=== PATIENT | male | born 1935 | race Caucasian/White ===

== ENCOUNTER 2018-11-17 16:43 | Observation (INO) ==
[2018-11-17] MEDS ORDERED: Aspirin 81 MG TAB.CHEW PO ONE (17:12)
--- NOTE | 2018-11-17 17:15 | Emergency Department Note ---
Disposition Clinical Impression: ACS (acute coronary syndrome) Disposition: Admitted As Inpatient Time of Disposition: 17:14 General Adult HPI - General Chief complaint: ED Chest Pain Stated complaint: Chest Pains Time Seen by Provider: 11/17/18 16:58 Source: patient, family Limitations: no limitations Nursing Notes Reviewed: Yes Vital Signs Reviewed: Yes - History of Present Illness HPI Narrative: Attestation note: Patient was seen with the emergency medicine resident/nurse practitioner/physician press assistant/transitional resident/medical student: Dr. Vishal Kelsey. I was present for the significant portions of the performance and interpretation of procedures and EKGs. I have personally performed a face to face evaluation on this patient. I have reviewed and agree with history and physical examination patient management and disposition. Briefly the salient points of the case are as follows: 83-year-old male presents with chest pain from his primary care provider's office. Patient has a HEART score 6. EKG shows some T-wave inversions in II, III, and F. No acute ST elevations or depressions. Seems like there is some pauses. Patient will get troponin chest x-ray screening labs with admission. Patient will get aspirin. Currently chest pain-free. Providing 45 minutes critical care service this patient. Disposition pending Pain Scale: 0 - Related Data Allergies Allergy/AdvReac Type Severity Reaction Status Date / Time IV Contrast Allergy Anaphylaxis Uncoded 11/17/18 16:47 Past Medical History - Past Medical History Medical history: Reports: other - Social History Smoking Status: Former smoker Smokeless Tobacco Status: No Alcohol use: Reports: none Drug use: Reports: none Physical Exam - General Limitations: no limitations General appearance: alert, in no apparent distress Course Vital Signs Temperature 97.6 F 11/17/18 16:47 Pulse Rate 60 11/17/18 16:47 Respiratory Rate 18 11/17/18 16:47 Blood Pressure 125/60 11/17/18 16:47 O2 Sat by Pulse Oximetry 97 11/17/18 16:47 Temperature 97.6 F 11/17/18 16:47 Pulse Rate 60 11/17/18 16:47 Respiratory Rate 18 11/17/18 16:47 Blood Pressure 125/60 11/17/18 16:47 O2 Sat by Pulse Oximetry 97 11/17/18 16:47 Oxygen Delivery Oxygen Delivery Room Air
--- NOTE | 2018-11-17 17:31 | Emergency Department Note ---
Disposition Clinical Impression: ACS (acute coronary syndrome) Disposition: Admitted As Inpatient Condition: Fair Forms: ED Satisfaction Letter Time of Disposition: 19:06 Chest Pain HPI - General Chief Complaint: ED Chest Pain Stated Complaint: Chest Pains Time Seen by Provider: 11/17/18 16:58 Source: patient, family Mode of arrival: ambulatory Limitations: no limitations Vital Signs Reviewed: Yes Nursing Notes Reviewed: Yes - History of Present Illness HPI Narrative: 83-year-old male presents to the emergency department complaining of chest pain. Said this been going on for partially 6 months but has worsened over the last few days said now it occurs whenever he is walking any type of distance. Says it is a 6 out of 10 dull throbbing ache in the right side of his chest nonradiating he says after that he becomes shortness of breath. When he rest t he pain goes away. He does not have any history of cardiac stent placement or open heart surgery but has had heart catheterization and stress test which were negative approximate 10 years ago. Does have history of diabetes, hypertension, hypercholesterol. Patient otherwise has no other complaint this time there is no nausea vomiting headache blurry vision back pain fevers chills nausea vomiting. Severity scale (1-10): 0 - Related Data Allergies Allergy/AdvReac Type Severity Reaction Status Date / Time IV Contrast Allergy Anaphylaxis Uncoded 11/17/18 16:47 All systems ED: reviewed and negative except as stated. Review of Systems: As Per HPI Chest Pain PMH - Past Medical History Medical history: Reports: other - Social History Smoking Status: Former smoker Alcohol use: Reports: none Drug use: Reports: none Physical Exam - General Limitations: no limitations General appearance: alert, in no apparent distress - Head Head exam: atraumatic, normocephalic, normal inspection - Eye Eye exam: Present: normal appearance, PERRL, EOMI - ENT ENT exam: normal exam, normal oropharynx, mucous membranes moist - Neck Neck exam: Present: normal inspection, full ROM, trachea midline - Chest Chest inspection: Present: normal inspection, symmetric chest wall rise - Respiratory Respiratory exam: Present: normal lung sounds bilaterally - Cardiovascular Cardiovascular exam: Present: regular rate, normal rhythm, normal heart sounds - Abdominal Exam Abdominal exam: Present: soft, Non-Tender, normal bowel sounds. Absent: tenderness, distention, guarding, rebound, rigidity - Extremities Exam Extremities exam: Present: normal inspection, full ROM, pedal edema (1+ bilaterally no signs of erythema). Absent: tenderness - Back Exam Back exam: Present: normal inspection, full ROM. Absent: tenderness - Neurological Exam Neurological exam: Present: alert, oriented X3 - Skin Skin exam: Present: warm, dry, intact, normal color Course Course Narrative: We will get chest pain workup including CBC BMP troponin does not take Coumadin no recent get PT/INR. We will get EKG chest x-ray. Patient given aspirin. No chest pain at this time so we will hold nitroglycerin. Disposition most likely will be admission for further evaluation. Vital Signs Temperature 97.6 F 11/17/18 16:47 Pulse Rate 60 11/17/18 16:47 Respiratory Rate 18 11/17/18 16:47 Blood Pressure 125/60 11/17/18 16:47 O2 Sat by Pulse Oximetry 97 11/17/18 16:47 Temperature 97.6 F 11/17/18 16:47 Pulse Rate 65 11/17/18 17:49 Respiratory Rate 18 11/17/18 17:49 Blood Pressure 120/46 11/17/18 17:49 O2 Sat by Pulse Oximetry 98 11/17/18 17:49 Oxygen Delivery Oxygen Delivery Room Air Chest Pain - MDM Narrative Medical decision making narrative: 83-year-old male presented to the emergency department complaining of chest pain. Troponin came back negative EKG did have new ST inversions there are no elevations or signs of STEMI. Troponin was negative. Due to patient's story as well as his history I feel patient needs to be admitted for further evaluation. Patient did receive aspirin while here he was having chest pain while here so did not give him nitroglycerin. I spoke with Dr. Suazo who agreed to admit the patient to their service per patient admitted in stable condition. Chest X-Ray 11/17/18 16:49 IMPRESSION: No acute abnormality. D/ / Timo Ruelas MD / Timo Ruelas MD Interpreting Provider: Timo Ruelas MD - Medical Records Medical records reviewed: Yes I reviewed the patient's medical records. - Lab Data Lab results reviewed: Yes I reviewed the patient's lab results. Result diagrams: 11/17/18 17:26 11/17/18 17:26 Lab Results 11/17/18 11/17/18 Range/Units 17:26 17:26 WBC 4.1 L (4.3-11.1) K/mcL RBC 4.24 (4.19-5.50) M/mcL Hgb 13.3 (12.9-16.9) g/dL Hct 41.0 (37.5-50.1) % MCV 96.7 (83.0-100.0) fL MCH 31.4 (28.0-33.3) pg MCHC 32.4 (31.6-35.5) g/dL RDW 12.8 (11.5-14.5) % Plt Count 254 (140-400) K/mcL MPV 10.4 (9.4-12.4) fL Immature Gran % 0.2 (0-4) % Seg Neutrophils % 57.4 % Lymphocytes % 27.5 % Monocytes % 12.8 % Eosinophils % 1.4 % Basophils % 0.7 % Neutrophils # 2.4 (1.6-8.9) K/mcL Lymphocytes # 1.1 (0.6-4.6) K/mcL Monocytes # 0.5 (0.0-1.3) K/mcL Eosinophils # 0.1 (0.0-0.6) K/mcL Basophils # 0.0 (0.0-0.2) K/mcL Sodium 136 (136-145) mEq/L Potassium 4.5 (3.5-5.1) mEq/L Chloride 106 (98-107) mEq/L Carbon Dioxide 23 (23-29) mEq/L BUN 21 (8-23) mg/dL Creatinine 1.06 (0.70-1.30) mg/dL Est GFR ( Amer) > 60 (> 60) Est GFR (Non-Af Amer) > 60 (> 60) BUN/Creatinine Ratio 20 (6-26) Glucose 129 H (70-105) mg/dL Calculated Osmolality 287 (280-300) Calcium 9.5 (8.6-10.3) mg/dL Troponin I < 0.03 (< 0.04) ng/mL - Radiology Data Radiology results reviewed: Yes I reviewed the patient's radiology results. - EKG Data EKG attestation: Yes I reviewed and interpreted this EKG. EKG results narrative: EKG done at 1653 review myself and the attending shows sinus bradycardia with a first-degree block at a rate of 55, HI interval 212, QRS 98, QTC 398. There is no acute ST changes there are flipped T waves in inferior leads leads II, III aVF otherwise no other ischemic changes. No signs of hypertrophy, heart strain, heart block. No WPW/Brugada/HOCM. E EKG is changed from previous with the new T-wave inversions when compared with old one done 09/15/17 Heart Score - Score History: Moderately Suspicious EKG: Non Specific repolarisation Disturbance Age: Greater than 65 Risk Factors: Equal/Greater than 3 risk factor or history of atherosclerotic disease Troponin: Less than normal limit HEART Score Total: 6
[2018-11-17 17:44] LABS: Basophils % 0.7 %; Eosinophils # 0.1 K/mcL (0.0-0.6); Eosinophils % 1.4 %; Hemoglobin 13.3 g/dL (12.9-16.9); Immature Granulocytes % 0.2 % (0-4); Lymphocytes # 1.1 K/mcL (0.6-4.6); Lymphocytes % 27.5 %; Mean Corpuscular HGB Conc 32.4 g/dL (31.6-35.5); Mean Corpuscular Hemoglobin 31.4 pg (28.0-33.3); Mean Corpuscular Volume 96.7 fL (83.0-100.0); Mean Platelet Volume 10.4 fL (9.4-12.4); Monocytes # 0.5 K/mcL (0.0-1.3); Monocytes % 12.8 %; Neutrophils # 2.4 K/mcL (1.6-8.9); Platelet Count 254 K/mcL (140-400); Red Blood Count 4.24 M/mcL (4.19-5.50); Red Cell Distribution Width 12.8 % (11.5-14.5); Segmented Neutrophils % 57.4 %; White Blood Count 4.1 K/mcL (4.3-11.1)
[2018-11-17 18:05] LABS: BUN/Creatinine Ratio 20 (6-26); Blood Urea Nitrogen 21 mg/dL (8-23); Calcium 9.5 mg/dL (8.6-10.3); Carbon Dioxide 23 mEq/L (23-29); Chloride 106 mEq/L (98-107); Glucose 129 mg/dL (70-105); Osmolality,Calculated 287 (280-300); Potassium 4.5 mEq/L (3.5-5.1); Sodium 136 mEq/L (136-145); Troponin I < 0.03 ng/mL (< 0.04); eGFR For African Americans > 60 (> 60); eGFR For Non-African Americans > 60 (> 60)
[2018-11-18] MEDS ORDERED: Naloxone 0.4 MG/ML INJ IVP PRN (00:03)
[2018-11-18] MEDS ORDERED: Dextrose Gel 15 GM/37.5 ML TUBE PO PRN ×4 (00:04→07:35)
[2018-11-18] MEDS ORDERED: *HR* Dextrose 50 % in Water (Syg) 50 ML SYRINGE IVP PRN ×2 (00:04→07:35)
[2018-11-18] MEDS ORDERED: D5% in Water 1,000 ML IVC PRN ×2 (00:04→07:35)
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
[2018-11-18] MEDS: *HR* Heparin 5,000 UNIT/ML VIAL SQ SCH ×2 (05:02→18:30)
[2018-11-18] MEDS ORDERED: Insulin LISPRO 300 UNITS/3 ML VIAL SQ SCH (07:30)
[2018-11-18] MEDS ORDERED: Regadenoson 0.4 MG/5 ML SYRINGE IVP ONE (08:20)
[2018-11-18 13:49] LABS: Basophils % 0.7 %; Eosinophils # 0.1 K/mcL (0.0-0.6); Eosinophils % 1.6 %; Hematocrit 43.8 % (37.5-50.1); Hemoglobin 14.1 g/dL (12.9-16.9); Immature Granulocytes % 0.4 % (0-4); Lymphocytes # 1.4 K/mcL (0.6-4.6); Lymphocytes % 25.9 %; Mean Corpuscular HGB Conc 32.2 g/dL (31.6-35.5); Mean Corpuscular Hemoglobin 31.1 pg (28.0-33.3); Mean Corpuscular Volume 96.5 fL (83.0-100.0); Mean Platelet Volume 10.4 fL (9.4-12.4); Monocytes # 0.7 K/mcL (0.0-1.3); Monocytes % 12.1 %; Neutrophils # 3.3 K/mcL (1.6-8.9); Platelet Count 277 K/mcL (140-400); Red Blood Count 4.54 M/mcL (4.19-5.50); Red Cell Distribution Width 12.9 % (11.5-14.5); Segmented Neutrophils % 59.3 %; White Blood Count 5.6 K/mcL (4.3-11.1)
[2018-11-18 14:07] LABS: BUN/Creatinine Ratio 20 (6-26); Blood Urea Nitrogen 19 mg/dL (8-23); Calcium 9.5 mg/dL (8.6-10.3); Carbon Dioxide 23 mEq/L (23-29); Chloride 105 mEq/L (98-107); Glucose 194 mg/dL (70-105); Osmolality,Calculated 288 (280-300); Potassium 4.6 mEq/L (3.5-5.1); Sodium 135 mEq/L (136-145); eGFR For African Americans > 60 (> 60); eGFR For Non-African Americans > 60 (> 60)
[2018-11-18] MEDS: FISH OIL 1000 MG PO SCH ×2 (16:13→20:23)
[2018-11-18] MEDS ORDERED: Isovue-370 500 ML BOTTLE IVP ONE (16:16)
[2018-11-18] MEDS: Fenofibrate 54 MG TABLET PO SCH (16:17)
[2018-11-18] MEDS: Insulin LISPRO 300 UNITS/3 ML VIAL SQ SCH ×3 (16:18→21:58)
--- NOTE | 2018-11-18 16:45 | Electrocardiograph Report ---
[address] [place], [place] [address] Test Date: 2018-11-17 Pat Name: Elieser Gonzalez Department: 104 Room: 3B12 Gender: M Heel Seam [employer]ber: : 1935 Requested By: [id number] Order Number: [id number] Reading MD: Phoenix Salazar Measurements Intervals [place] Rate: 55 P: 21 [place]: 212 QRS: 82 QRSD: 98 T: -35 QT: 410 QTc: 398 Interpretive Statements SINUS BRADYCARDIA WITH FIRST DEGREE AV BLOCK WITH MARKED RHYTHM IRREGULARITY, POSSIBLE NON-CONDUCTED PAC INFERIOR MYOCARDIAL INFARCTION, OF INDETERMINATE AGE Electronically Signed On 11-18-2018 16:43:31 EDT by Phoenix Salazar
[2018-11-18] MEDS: Lisinopril 20 MG TABLET PO SCH (22:17)
[2018-11-19 04:28] LABS: Chol/HDL Ratio 2.8 (0-4.9)
[2018-11-19] MEDS: *HR* Heparin 5,000 UNIT/ML VIAL SQ SCH ×2 (05:26→17:38)
[2018-11-19 05:38] LABS: Estimated Average Glucose 148 mg/dl; Hemoglobin A1C 6.8 %
[2018-11-19] MEDS: Fenofibrate 54 MG TABLET PO SCH (08:09)
[2018-11-19] MEDS: Insulin LISPRO 300 UNITS/3 ML VIAL SQ SCH ×4 (10:21→21:06)
[2018-11-19] MEDS: FISH OIL 1000 MG PO SCH ×2 (10:21→21:35)
[2018-11-19] MEDS: Furosemide 20 MG/2 ML VIAL IVP SCH ×2 (10:35→21:36)
--- NOTE | 2018-11-19 11:11 | Internal Med Progress Note ---
Hospitalist Progress Note - Encounter Date of Encounter: 11/19/18 Time of Encounter: 11:09 - Subjective Interval History: Pt seen and examined in the room. He reported slight edema on both legs. No chest pain, sob, or palpitation. - Exam Vitals: Temp Pulse Resp BP Pulse Ox 97.4 F L 55 16 114/66 98 11/19/18 08:08 11/19/18 08:08 11/19/18 08:08 11/19/18 08:08 11/19/18 08:08 Exam: General: Alert and oriented. Skin:Normal color, no rash, no lesions. HEENT:Pupils equal, round and reactive. Cardiovascular:Normal S1 & S2, no rubs, murmurs or gallops. No JVD. Pulse re gular. Lungs:Normal breath sounds, no wheezes or crackles. Abdomen:Soft, non-tender, no rigidity. Extremities:No deformity, tenderness, joint swelling or clubbing. +1 pitting edema noted to bilateral lower extremities. Neurological:Normal cognition and motor skills. Pulses:Carotid and radial pulses normal +2. Rest of the physical exam is non contributory. - Assessment and Plan (1) Chest pain Current Visit: Yes Status: Acute Assessment and Plan: 11/18 EKG shows new t wave inversions. Pain worse with exertion, improved with rest. Currently pain free. Continuous cardiac monitoring. Initial troponin in ER negative, serial troponins ordered. Echocardiogram ordered. Consider further imaging of chest if further cardiac workup is unremarkable. 11/19 Serial trop were negative. ECHO results reviewed: normal EF, moderate LVDD. CT chest no acute abnormalities.. BNP slightly elevated. mild leg pitting edema. Clinical picture fits with CHF, lasix started. Cardiology consulted. (2) CHF (congestive heart failure) Current Visit: Yes Status: Acute Assessment and Plan: New diagnosed CHF, started on Lasix, already on ACEI at home, not a candidate for BB due to low HR. Cardiology consulted. (3) Diabetes mellitus Current Visit: Yes Status: Chronic Assessment and Plan: Hold home diabetic medications. Accu-Chek's ACHS. Sliding scale insulin order. A1c 6.8. (4) Hypertension Current Visit: No Status: Chronic Assessment and Plan: Continue home medications. BP controlled. (5) DVT prophylaxis Current Visit: Yes Status: Acute Assessment and Plan: heparin sq. - Time Spent with Patient Total time spent is greater than 50% in coordination of care (as documented) at patient's floor/unit and/or counseling patient: Greater than 35 minutes Plan of Care Discussed with: patient Internal Medicine: Result - Labs CBC & Chem 7: 11/18/18 13:22 11/18/18 13:22 Labs: Short CBC 11/18/18 Range/Units 13:22 WBC 5.6 (4.3-11.1) K/mcL Hgb 14.1 (12.9-16.9) g/dL Hct 43.8 (37.5-50.1) % Plt Count 277 (140-400) K/mcL Neutrophils # 3.3 (1.6-8.9) K/mcL BMP 11/18/18 13:22 Sodium 135 L Potassium 4.6 Chloride 105 Carbon Dioxide 23 BUN 19 Creatinine 0.94 Glucose 194 H Calcium 9.5 Cardiac Enzymes 11/18/18 Range/Units 13:22 Troponin I < 0.03 (< 0.04) ng/mL - Impressions Impressions Echocardiogram 11/18/18 01:52 Impressions: LVEF 55-60%. Moderate concentric left ventricular hypertrophy. Moderate left ventricular diastolic dysfunction. Normal right ventricular structure and function. Moderately dilated left atrium. Mild-moderate mitral regurgitation. Mild tricuspid regurgitation. Mild pulmonary hypertension.Estimated RVSP is 40 mmHg. Left Ventricular Wall Motion: Rest Echo Findings All wall segments showed normal motion. Findings: Study Quality * Technically adequate exam. ECG Findings * Sinus bradycardia. Left Ventricle * LVEF 55-60%. * Moderate concentric left ventricular hypertrophy. * Moderate left ventricular diastolic dysfunction. * Normal LV chamber size. Right Ventricle * Normal right ventricular structure and function. Left Atrium * Moderately dilated left atrium. Right Atrium * Normal right atrial size. Aortic Valve * Trileaflet aortic valve. * Mildly sclerotic aortic valve leaflets. * No aortic regurgitation. * No aortic stenosis. Mitral Valve * Mild mitral annular calcification * Mild-moderate mitral regurgitation. * No mitral stenosis. Tricuspid Valve * Mild tricuspid regurgitation. * Mild pulmonary hypertension.Estimated RVSP is 40 mmHg. * Estimated RVSP is 40 mmHg. * Estimated RA pressure is 5 mmHg. Pulmonic Valve * Trace pulmonic regurgitation. Aorta * Normally sized aortic root. Pericardium * The pericardium appears normal. IVC * Normal IVC dimensions and inspiratory collapse. Pulmonary Artery * Normal visualized portions of the main pulmonary artery. Chest CT 11/18/18 16:16 IMPRESSION: 1. Calcific atherosclerosis aorta and coronary arteries. 2. No acute traumatic abnormality. 3. No acute pulmonary disease evident on CT chest. D/ / Jose Estevez / Jose Estevez Interpreting Provider: Jose Estevez Consult Discharge Plan - Plan Referrals: Brian Nice DO [Primary Care Provider] - 11/23/18 2:30 pm (1) Chest pain Qualifiers: Chest pain type: unspecified Qualified Code(s): R07.9 - Chest pain, unspecified (2) CHF (congestive heart failure) Qualifiers: Heart failure type: diastolic Heart failure chronicity: acute Qualified Code(s): I50.31 - Acute diastolic (congestive) heart failure (3) Diabetes mellitus Qualifiers: Diabetes mellitus type: type 2 Diabetes mellitus termite exterminator insulin use: unspecified half-way insulin use status Qualified Code(s): E11.9 - Type 2 diabetes mellitus without complications (4) Hypertension Qualifiers: Hypertension type: unspecified Qualified Code(s): I10 - Essential (primary) hypertension
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
[2018-11-19 13:20] LABS: Basophils # 0.1 K/mcL (0.0-0.2); Basophils % 1.3 %; Eosinophils # 0.1 K/mcL (0.0-0.6); Eosinophils % 1.6 %; Hematocrit 41.2 % (37.5-50.1); Hemoglobin 13.6 g/dL (12.9-16.9); Immature Granulocytes % 0.3 % (0-4); Lymphocytes % 26.9 %; Mean Corpuscular Hemoglobin 31.7 pg (28.0-33.3); Mean Platelet Volume 10.3 fL (9.4-12.4); Monocytes # 0.6 K/mcL (0.0-1.3); Monocytes % 14.6 %; Neutrophils # 2.1 K/mcL (1.6-8.9); Platelet Count 265 K/mcL (140-400); Red Blood Count 4.29 M/mcL (4.19-5.50); Red Cell Distribution Width 12.9 % (11.5-14.5); Segmented Neutrophils % 55.3 %; White Blood Count 3.8 K/mcL (4.3-11.1)
[2018-11-19 13:32] LABS: BUN/Creatinine Ratio 23 (6-26); Blood Urea Nitrogen 22 mg/dL (8-23); Calcium 9.8 mg/dL (8.6-10.3); Carbon Dioxide 23 mEq/L (23-29); Chloride 105 mEq/L (98-107); Glucose 126 mg/dL (70-105); Osmolality,Calculated 287 (280-300); Potassium 4.6 mEq/L (3.5-5.1); Sodium 136 mEq/L (136-145); eGFR For African Americans > 60 (> 60); eGFR For Non-African Americans > 60 (> 60)
[2018-11-19] MEDS ORDERED: 0.9 % Sodium Chloride 1,000 ML ONE (15:17)
[2018-11-19] MEDS ORDERED: ISOVUE-370 200 ML INFUS..BTL ONE ×2 (15:17→15:56)
[2018-11-19] MEDS ORDERED: Nitroglycerin 1,000 MCG/10 ML VIAL IV ONE (15:17)
[2018-11-19] MEDS ORDERED: *HR* Heparin 10,000 UNIT/10 ML VIAL ONE (15:17)
[2018-11-19] MEDS ORDERED: Heparin 1,000 UNITS/500 mL 500 ML ONE (15:17)
--- NOTE | 2018-11-19 15:27 | Pre-Sedation Evaluation ---
Pre-sedation evaluation - Pre-sedation checklist Date of procedure: 11/19/18 Procedure: [facility] Recent Vitals: Last Vital Signs Temp 97.5 F L 11/19/18 12:18 Pulse 50 11/19/18 12:18 Resp 16 11/19/18 12:18 BP 132/67 11/19/18 12:18 Pulse Ox 97 11/19/18 12:18 H&P (including ROS) documented in medical record: Yes Previous reaction to sedatives/anesthetics: No Dietary Status: NPO after Midnight Airway Assessment: Patient can open mouth completely, TMJ function normal, Micrognathia (under-bite, receding chin) absent, Neck with adequate range of mo tion Dentition: dentures removed Possible difficult airway: No ASA Classification *see protocol: CLASS II-Mild systemic disease Plan of Care: Pt appropriate candidate for procedure/moderate/conscious sedation, Risks/benefits of procedure/sedation discussed w/ patient/family Cardiac Registry (Cardio Only) - Functional Capacity Functional Capacity: < 4 METS - Clincal Frailty Scale Clinical Frailty Scale: Vulnerable
[2018-11-19] MEDS ORDERED: *HR* Midazolam HCl 2 MG/2 ML VIAL ONE (15:39)
[2018-11-19] MEDS ORDERED: *HR* FentaNYL (PF) 100 MCG/2 ML VIAL ONE (15:39)
[2018-11-19] MEDS ORDERED: *HR* Atropine Sulfate 1 MG/10 ML SYRINGE ONE ×2 (15:56→19:57)
[2018-11-19] MEDS ORDERED: *HR* Bivalirudin 250 MG VIAL IVC ONE ×2 (15:56→16:16)
[2018-11-19] MEDS ORDERED: *HR* Ticagrelor 90 MG TABLET ONE (17:05)
[2018-11-19] MEDS ORDERED: Nitroglycerin 0.4 MG TAB.SUBL SL PRN (17:36)
--- NOTE | 2018-11-19 17:39 | Invasive Diagnostic Lab Proc ---
Name: Elieser Gonzalez Date of Study: 11/19/2018 Date: 1935 Ht: 68.1in Medical Record#: [id number] Age: 83 Wt: 191.80lb Gender: Male BSA: 2.01 Order #: [id number] BMI: 29.07 Physicians Procedure Physician: Traci Salazar MD, [facility] Referring MD: Referring MD: Staff Name Position Time In Sites, Majo RT (R) Monitor 03:42 PM Yesenia Mercedes RT Scrub 03:42 PM Traci De Leon RT (R) Scrub 03:42 PM Jose Hou RN Shop Lead 03:42 PM Jayme Daly RN Monitor 04:45 PM Indications Indication Abnormal Test - Stress Procedures Performed Procedure L HRT ARTERY/VENTRICLE ANGIO PRQ CARD JACINTA STENT W/ANGIO 1 VSL Pre-Procedure Checklist Informed consent is complete signed and on chart. H&P is on chart. ID band is on and ID verified with patient. Patient NPO for procedure The procedure was described for the patient and questions were answered. Blood Pressure: 114/66 ECG is on chart. Rhythm: NSR Plan of Care Patient will tolerate the procedure without complications. Adequate level of comfort will be maintained. Hemodynamics will remain stable Patient will recover from procedure without complications. Respiratory function will be maintained. Cardiac rhythm will remain stable. Patient temperature will be maintained. Patient and/or family have verbalized understanding of the procedure. Patient Education Chief Complaint/Reason for Test: Cardiac Cath Developmental Category: Geriatric (65+ years) Developmentally Appropriate for Age: Yes Learning Barriers: None Education Needs: Procedure Education Method: Verbal Information Taught: Cardiac Cath Educational Evaluation: Able to repeat information Intravenous Access Time IV Size Location DC'd Fluid/Drip Rate Units RN 20g 1 1/" Patent On Arrival Rt Arm 0.9NaCl 50 ml/hr Jose Hou RN Allergies No Known Drug Allergies Vital Signs Time BP (mmHg) HR (bpm) O2 Sat. RR (bpm) LOC 03:43 PM / % 5 = Fully awake and oriented or at pre-proc level 03:43 PM / % 5 = Fully awake and oriented or at pre-proc level 03:58 PM / % 4 = Oriented but drowsy 04:13 PM / % 5 = Fully awake and oriented or at pre-proc level 04:28 PM / % 5 = Fully awake and oriented or at pre-proc level 04:44 PM / % 4 = Oriented but drowsy 04:59 PM / % 4 = Oriented but drowsy 03:42 PM 149 / 74 59 98 % 03:46 PM 141 / 72 56 98 % 16 03:51 PM 113 / 53 66 89 % 15 03:56 PM 113 / 59 58 97 % 31 04:01 PM 115 / 59 55 98 % 16 04:06 PM 108 / 52 54 99 % 14 04:11 PM 116 / 63 54 99 % 14 04:16 PM 126 / 65 54 99 % 17 04:21 PM 127 / 68 54 99 % 14 04:26 PM 130 / 60 54 100 % 16 04:31 PM 128 / 60 53 100 % 13 04:36 PM 132 / 66 53 100 % 14 04:41 PM 126 / 63 53 100 % 14 04:46 PM 139 / 67 52 100 % 15 04:51 PM 138 / 68 52 100 % 18 04:56 PM 141 / 71 52 100 % 15 05:02 PM 131 / 64 56 100 % 16 05:06 PM 125 / 74 54 100 % 21 Procedural Medications Time Medication Dose Units Method Given By 03:43 PM Oxygen 2 L/min nasal cannula Jose Hou RN 03:45 PM Versed 2 mg Intravenous Jose Hou RN 03:45 PM Fentanyl 50 mcg Intravenous Jose Hou RN 03:48 PM Lidocaine 2% 18 ml Subcutaneous Traci Salazar MD, FACC 03:58 PM Angiomax 0.75mg/kg bolus: 13 ml Intravenous Jose Hou RN 03:58 PM Angiomax 1.75mg/kg/hr: 30 ml Intravenous Jose Hou RN 05:01 PM Nitroglycerin 200 mcg Intracoronary Traci Salazar MD, FACC 05:22 PM Brilinta 180 mg Orally Jose Hou RN ASA Classification: CLASS II- Mild systemic disease (i.e. well-controlled diabetes, hypertension, asthma, cigarette smoking) Cammy Score Preprocedure Postprocedure Activity 2- Moves 4 extremities sustained head lift Activity 2- Moves 4 extremities sustained head lift Circulation 2- SBP +/= 20 points of pre-anesthetic level Circulation 2- SBP +/= 20 points of pre-anesthetic level Consciousness 2- Awake and alert oriented x 3 Consciousness 2- Awake and alert oriented x 3 O2 Saturation 2- Able to maintain O2 satruation of 92% on room air O2 Saturation 2- Able to maintain O2 satruation of 92% on room air Respiratory 2- Able to deep breathe and cough well Respiratory 2- Able to deep breathe and cough well Total Score 10 Total Score 10 Contrast Agent: Isovue Diagnostic Contrast: 246 ml Total Contrast: 246 ml Fluoro Dose: 148 mGy Procedure Log Time Note Enter By 03:38 PM CathStat 03:41 PM Vitals capture started with the following parameters, Patient=Adult, Interval=5 min, Initial Xupmfuas=946 mmHg, Deflation Rate=5 mmHg, Cuff placed on Left Arm 03:42 PM Pt arrived to lab aide 2 at 15:42 tsites 03:42 PM Majo Ruelas RT (R) Position: Monitor Time in: 15:42 tsites 03:42 PM Yesenia Mercedes RT Position: Scrub Time in: 15:42 tsites 03:42 PM Traci De Leon RT (R) Position: Scrub Time in: 15:42 tsites 03:42 PM Jose Hou RN Position: Shop Lead Time in: 15:42 tsites 03:42 PM Patient charges- Angio tray pack, Navilyst 3mm J, Pulse Oximetry and ACIST tubing and transducer tsites 03:42 PM HR=59 bpm, GPWT=358/74 mmhg, SpO2=98.0 % 03:42 PM Physician arrived 15:42 tsites 03:42 PM Meet and greet completed tsites 03:42 PM Sign in performed according to hospital policy. Informed consent was obtained. tsites 03:42 PM Procedure start 15:42 tsites 03:42 PM Case Delayed No tsites 03:43 PM Time: 15:43 Oxygen on at 2 L/min per nasal cannula by Jose Hou RN tsites 03:43 PM Time: 15:43 Patient comfortable and pain free: Yes tsites 03:43 PM Time: 15:43LOC: 5 = Fully awake and oriented or at pre-proc level tsites 03:43 PM Clinical Presentation: Unstable angina tsites 03:43 PM Pressure channel 1 zeroed. 03:43 PM Recorded ECG: HR=46 Condition=Condition 1 03:45 PM Time: 15:45 Versed 2 mg Intravenous Given by Jose Hou RN ts 03:45 PM Time: 15:45 Fentanyl 50 mcg Intravenous Given by Jose Hou RN tsites 03:46 PM Time out was performed according to hospital policy. Conscious sedation and anesthesia was achieved (see medication log with in this report above) tsites 03:46 PM HR=56 bpm, LJPX=447/72 mmhg, SpO2=98.0 %, Resp=16 B/min 03:48 PM Time: 15:48 18 ml Lidocaine 2% to right groin Subcutaneous Given by Traci Salazar MD, [facility] tsites 03:48 PM 5Fr FL 4 catheter inserted over the wire DN tsites 03:48 PM 0.035 145cm Navilyst 3mmJ wire [id number] tsites 03:48 PM LCA angiography performed in multiple views. tsites 03:48 PM Recorded Pressure: Ao, HR=60, Condition=Condition 1 (Aorta) Ao 112/50/74 03:49 PM Catheter removed tsites 03:49 PM 5Fr FR 4 catheter inserted over the wire DN tsites 03:50 PM RCA angiography performed in multiple views. tsites 03:51 PM Recorded Pressure: Ao, HR=66, Condition=Condition 1 (Aorta) Ao 92/54/72 03:51 PM Catheter removed tsites 03:51 PM Coronary Dominance: right tsites 03:51 PM 5Fr Pigtail catheter inserted over the wire DN tsites 03:51 PM Catheter crossed the aortic valve and was selectively placed in the left ventricle. Pressures recorded on pullback for left heart catheterization. tsites 03:51 PM HR=66 bpm, NSXQ=798/53 mmhg, SpO2=89.0 %, Resp=15 B/min 03:51 PM Bolus angiogram of left Ventricle complete: 8 ml/sec for a total of 24 mls tsites 03:53 PM Pressure channel 1 zero failed. 03:53 PM Pressure channel 1 zeroed. 03:53 PM Recorded Pressure: LV, HR=67, Condition=Condition 1 (Left Ventricle) LV 116/-7/4 03:53 PM Recorded Pressure: LV, Ao, HR=65, Condition=Condition 1 (Left Ventricle) LV 93/16/13, (Aorta) Ao 90/46/66 03:54 PM PCI Status Urgent tsites 03:54 PM Sheath exchanged for a 6 Fr 11 cm TerumAether[employer] [place] sheath [id number] tsites 03:55 PM defib pads applied to patient tsites 03:56 PM Lesion found in Proximal RCA. Pre Stenosis: 99 Pre CRISTHIAN Flow: 3: Complete and Brisk Flow/Perfusion tsites 03:56 PM Right Coronary, Right Posterior Descending Arteries with Right Posterolateral and Acute Marginal branches with 99 % stenosis. If graft is supplying this area, 0 % stenosis tsites 03:56 PM HR=58 bpm, VKZM=551/59 mmhg, SpO2=97.0 %, Resp=31 B/min 03:57 PM 6Fr JR 4 Runway guide catheter was used to cannulate the PCI vessel successfully. reused? No tsites 03:57 PM Inflation device was opened. tsites 03:57 PM .014 Prowater 182cm guide wire across target lesion- successful. reused? No tsites 03:58 PM Time: 15:43LOC: 5 = Fully awake and oriented or at pre-proc level tsites 03:58 PM Time: 15:43 Patient comfortable and pain free: Yes tsites 03:58 PM Time: 15:58 Angiomax 0.75mg/kg bolus: 13 ml Intravenous Given by Jose Hou RN Leal pump tsites 03:58 PM Time: 15:58 Angiomax 1.75mg/kg/hr: 30 ml Intravenous Given by Jose Hou RN Leal pump tsites 04:00 PM Guide catheter removed intact. tsites 04:01 PM 6Fr IM Runway guide catheter was used to cannulate the PCI vessel successfully. reused? No tsites 04:01 PM HR=55 bpm, QIUH=867/59 mmhg, SpO2=98.0 %, Resp=16 B/min 04:03 PM prowater reinserted tsites 04:06 PM HR=54 bpm, FKQT=759/52 mmhg, SpO2=99.0 %, Resp=14 B/min 04:08 PM 1.5 mm x 15 mm Emerge Monorail balloon across target lesion- successful. reused? No tsites 04:10 PM Balloon inflated @ 14 kristy for 30 seconds tsites 04:11 PM Balloon inflated @ 14 kristy for 20 seconds tsites 04:11 PM Balloon catheter removed intact. tsites 04:11 PM HR=54 bpm, MYVT=838/63 mmhg, SpO2=99 %, Resp=14 B/min 04:12 PM 2.0 mm x 12 mm Emerge Monorail balloon across target lesion- successful. reused? No tsites 04:12 PM Recorded Pressure: Ao, HR=56, Condition=Condition 1 (Aorta) Ao 107/46/71 04:13 PM Time: 15:58 Patient comfortable and pain free: Yes tsites 04:13 PM Time: 15:58LOC: 4 = Oriented but drowsy tsites 04:13 PM Balloon inflated @ 10 kristy for 20 seconds tsites 04:14 PM Balloon inflated @ 14 kristy for 20 seconds tsites 04:14 PM Balloon inflated @ 14 kristy for 20 seconds tsites 04:15 PM Balloon catheter removed intact. tsites 04:16 PM 2.5 mm x 12 mm Emerge Monorail balloon across target lesion- successful. reused? No tsites 04:16 PM HR=54 bpm, YLUD=791/65 mmhg, SpO2=99.0 %, Resp=17 B/min 04:17 PM Balloon inflated @ 14 kristy for 30 seconds tsites 04:18 PM Balloon inflated @ 14 kristy for 30 seconds tsites 04:19 PM 3.0 mm x 12 mm Emerge Monorail balloon across target lesion- successful. reused? No tsites 04:21 PM Balloon inflated @ 14 kristy for 30 seconds tsites 04:21 PM HR=54 bpm, CPXJ=993/68 mmhg, SpO2=99.0 %, Resp=14 B/min 04:22 PM Balloon inflated @ 14 kristy for 20 seconds tsites 04:23 PM 3.5 mm x 12 mm Emerge Monorail balloon across target lesion- successful. reused? No tsites 04:26 PM Balloon inflated @ 10 kristy for 30 seconds tsites 04:26 PM HR=54 bpm, XFHZ=474/60 mmhg, AyX7=236 %, Resp=16 B/min 04:28 PM Time: 16:13LOC: 5 = Fully awake and oriented or at pre-proc level tsites 04:28 PM Time: 16:13 Patient comfortable and pain free: Yes tsites 04:29 PM Balloon inflated @ 12 kristy for 30 seconds tsites 04:31 PM HR=53 bpm, FEUY=626/60 mmhg, CmA6=192 %, Resp=13 B/min 04:36 PM HR=53 bpm, KKZT=985/66 mmhg, RhK8=645 %, Resp=14 B/min 04:38 PM Physician reviewing films tsites 04:41 PM HR=53 bpm, KGKD=220/63 mmhg, KhB3=734 %, Resp=14 B/min 04:43 PM Time: 16:28 Patient comfortable and pain free: Yes tsites 04:44 PM Time: 16:28LOC: 5 = Fully awake and oriented or at pre-proc level tsites 04:44 PM 4.0 mm x 15 mm Emerge Monorail balloon across target lesion- successful. reused? No tsites 04:45 PM Jayme Daly RN Position: Monitor Time in: 16:45 to relieve Sites, Majo RT (R) tsites 04:45 PM Recorded Pressure: Ao, HR=54, Condition=Condition 1 (Aorta) Ao 131/51/82 04:46 PM HR=52 bpm, TQTA=805/67 mmhg, SdQ3=268.0 %, Resp=15 B/min 04:48 PM Balloon inflated @ 10 kristy for 54 seconds tsites 04:51 PM 4.0mm x 20mm Synergy drug-eluting stent across target lesion- successful Lot #[id number] tsites 04:51 PM HR=52 bpm, MEJG=704/68 mmhg, AnC6=438.0 %, Resp=18 B/min 04:52 PM Stent delivery system removed intact, undeployed. tsites 04:53 PM 4.0mm x 16mm Synergy drug-eluting stent across target lesion- successful Lot #[id number] tsites 04:56 PM HR=52 bpm, WRNU=627/71 mmhg, AfK7=417.0 %, Resp=15 B/min 04:58 PM Stent deployed @ 12 kristy for 30 seconds tsites 04:59 PM Time: 16:44LOC: 4 = Oriented but drowsy tsites 04:59 PM Time: 16:43 Patient comfortable and pain free: Yes tsites 05:00 PM Stent balloon reinflated @ 12 kristy for 30 seconds tsites 05:00 PM Stent delivery system removed intact. tsites 05:01 PM Time: 17:01 Nitroglycerin 200 mcg Intracoronary Given by Traci Salazar MD, [facility] tsites 05:02 PM HR=56 bpm, KTEF=373/64 mmhg, EbC7=609.0 %, Resp=16 B/min 05:03 PM Recorded Pressure: Ao, HR=59, Condition=Condition 1 (Aorta) Ao 103/53/74 05:04 PM Guide wire removed intact. tsites 05:05 PM Guide catheter removed intact. tsites 05:06 PM HR=54 bpm, LGXJ=950/74 mmhg, IfB7=610.0 %, Resp=21 B/min 05:12 PM Vitals capture stopped. 05:15 PM Time: 16:59 Patient comfortable and pain free: Yes tsites 05:15 PM Time: 16:59LOC: 4 = Oriented but drowsy tsites 05:15 PM Procedure completed at 17:15 11/19/2018 tsites 05:16 PM Sign out completed: Radiation Dose 916.72 mGy, 148 Gy/cm2 Fluoro Time: 21.3 Isovue 370 - 200ml contrast 246 ml given by Traci Salazar MD, [facility]. Complications: None. 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 Sedation minutes 90. Cardiac Rehab Consult needed: Yes. Confirmed administered medications: Yes tsites 05:16 PM Isovue 370 - 200ml,2 Bottle(s) used. tsites 05:16 PM Sheath left in place to be pulled on floor/holding areaV+Pad tsites 05:16 PM Estimated Blood Loss: less than 20cc tsites 05:16 PM Post ECG NSR tsites 05:16 PM Post Blood Pressure 124/74 tsites 05:16 PM 17:16 Post Pulses Bilateral DP & PT 2+ tsites 05:17 PM Information taught Cardiac Cath and PCI tsites 05:17 PM Education needs Procedure, Plan of Care, and Responsibilities of Patient in Care tsites 05:17 PM Learning barriers :None tsites 05:17 PM Education Methods Verbal tsites 05:17 PM Education evaluation Able to repeat information tsites 05:17 PM Site status No bleeding/hematoma - Rt Groin as reported by Yesenia Mercedes RT at 17:17 tsites 05:18 PM Report given to 2N RN Pt taken to 2N Room #14. 17:18 tsites 05:18 PM Plavix, Effient or Brilinta given Yes tsites 05:18 PM Family placed in consult room. tsites 05:18 PM Complications: None tsites 05:18 PM Patient out of room: 17:18 tsites 05:23 PM Time: 17:22 Brilinta 180 mg Orally Given by Jose Hou RN tsites 05:25 PM Lesion found in Mid RCA. Pre Stenosis: 30 Pre CRISTHIAN Flow: tsites 05:26 PM Lesion found in Distal RCA. Pre Stenosis: 40 Pre CRISTHIAN Flow: tsites 05:26 PM Lesion found in Proximal LAD. Pre Stenosis: 30 Pre CRISTHIAN Flow: tsites 05:29 PM Proximal Left Anterior Descending Coronary Artery with 30% stenosis. If graft is supplying this territory, 0 % stenosis. tsites Complications Complication None None Hemodynamics Pressures Site Systolic/A Wave Diastolic/V Wave Mean AO 112 50 74 AO 92 54 72 LV 116 -7 4 LV 93 16 13 AO 90 46 66 AO 107 46 71 AO 131 51 82 AO 103 53 74 Post Procedure Information Blood Pressure: 124/74 mmHg Rhythm: NSR Post procedural instructions were given Closure Device Time Device Success/Fail Manual Compression Successful Site Checks Time Location Status Staff Sheath In? Note 05:17 PM Rt Groin No bleeding/hematoma Yesenia Mercedes RT Pulses Time Site Pre-Procedure Post-Procedure Note Bilateral DP & PT 2+ 5:16:00 PM Bilateral DP & PT 2+ Updated by Majo Ruelas RT (R) on 11/19/2018 5:32:22 PM Majo Ruelas RT electronically signed on 11/19/2018 5:33:28 PM with status of Final
[2018-11-19] MEDS ORDERED: 0.9 % Sodium Chloride 1,000 ML IVC SCH (17:45)
[2018-11-19] MEDS: Lisinopril 20 MG TABLET PO SCH (21:23)
[2018-11-20 01:20] LABS: Basophils % 0.5 %; Eosinophils # 0.1 K/mcL (0.0-0.6); Eosinophils % 1.3 %; Immature Granulocytes % 0.2 % (0-4); Lymphocytes % 16.3 %; Mean Corpuscular HGB Conc 32.5 g/dL (31.6-35.5); Mean Corpuscular Volume 95.2 fL (83.0-100.0); Mean Platelet Volume 10.6 fL (9.4-12.4); Monocytes # 0.6 K/mcL (0.0-1.3); Monocytes % 8.9 %; Platelet Count 231 K/mcL (140-400); Red Cell Distribution Width 12.8 % (11.5-14.5); Segmented Neutrophils % 72.8 %
[2018-11-20 01:25] LABS: Neutrophils # 4.7 K/mcL (1.6-8.9); White Blood Count 6.4 K/mcL (4.3-11.1)
[2018-11-20 01:40] LABS: Blood Urea Nitrogen 23 mg/dL (8-23); Carbon Dioxide 23 mEq/L (23-29); Chloride 105 mEq/L (98-107); Glucose 285 mg/dL (70-105); Osmolality,Calculated 296 (280-300); Potassium 3.9 mEq/L (3.5-5.1); Sodium 136 mEq/L (136-145)
[2018-11-20 02:14] LABS: BUN/Creatinine Ratio 22 (6-26); eGFR For African Americans > 60 (> 60); eGFR For Non-African Americans > 60 (> 60)
[2018-11-20] MEDS: *HR* Heparin 5,000 UNIT/ML VIAL SQ SCH (04:58)
[2018-11-20] MEDS: FISH OIL 1000 MG PO SCH (07:24)
[2018-11-20 07:32] VITALS: BP 109/54
[2018-11-20] MEDS: Insulin LISPRO 300 UNITS/3 ML VIAL SQ SCH (07:35)
[2018-11-20] MEDS: Furosemide 20 MG/2 ML VIAL IVP SCH (07:35)
[2018-11-20] MEDS: Fenofibrate 54 MG TABLET PO SCH (08:54)
[2018-11-20] MEDS ORDERED: Aspirin 81 MG TAB.CHEW PO SCH (09:00)
[2018-11-20] MEDS ORDERED: *HR* Ticagrelor 90 MG TABLET PO SCH (09:00)
--- NOTE | 2018-11-20 11:14 | Cardiology Progress Note ---
Date of Encounter: 11/20/18 Time of Encounter: 11:11 Assessment and Plan (1) CAD (coronary artery disease) Current Visit: Yes Status: Acute S/p PCI to the RCA. continue asa, brilinta, statin, and bb. NTG PRN. Qualifiers: Coronary Disease-Associated Artery/Lesion type: [place] artery [place] vs. transplanted heart: [place] heart Associated angina: without angina Qualified Code(s): I25.10 - Atherosclerotic heart disease of [place] coronary artery without angina pectoris (2) Chest pain Current Visit: Yes Status: Acute Right sided exertional chest pain over past six months getting progressively worse. Pain is described as aching, associated with shortness of breath. Occurs only on exertion and improves with rest. Unstable angina. EKG showed sinus bradycardia with blocked PACs, new T waves in inferior leads II, III, and aVF and flattenting of ST segments diffusely. All EKG changes are new compared to September 2017. EKG today shows improvement with no acute ST changes. Troponins negative. Nuclear stress test initially read as negative for ischemia. Further reviewed by Dr. Phillips and appears to be ischemia in inferior territory. TTE LVEF 55-60%. Moderate cLVH. Moderate LVDD. Normal RV structure and function. Moderately dilated LA. Mild-moderate MR. Mild TR. Mild phtn. Estimated RVSP is 40 mmHg. LHC completed and patient found to have severe pRCA stenosis. he recieved PTCA and JACINTA with no complication. he denies chest pain. No problem with right femoral access site. Importance of DAPT with asa and brilinta uninterrupted for min one year reviewed and he voiced understanding. Out-pt f/u will be coordinated in 2 weeks. Cardiac rehab ordered. Activity restrictions reviewed. Cardiology will sign off. Qualifiers: Chest pain type: unspecified Qualified Code(s): R07.9 - Chest pain, unspecified (3) CHF (congestive heart failure) Current Visit: Yes Status: Acute Chronic diastolic dysfunction.Reports increased BLE edema over recent months after PCP instructed him to increase fluid intake. TTE LVEF 55-60%. Moderate LVDD. CXR and CTA no pleural effusions noted. BNP 274, borderline. Suspect BLE edema is r/t moderate diastolic dysfunction and excessive fluid intake >2L/day. On IV Lasix 20mg BID. Recommend low sodium diet. Lasix 20 mg PRN edema. Appears euvolemic today. Qualifiers: Heart failure type: diastolic Heart failure chronicity: acute Qualified C ode(s): I50.31 - Acute diastolic (congestive) heart failure Discussion w patient/family: The assessment and plan as outlined above was discussed with the patient and/or family members who expressed understanding and agreement. All questions were answered. Thank you for involving us in the care of your patient. Please call with any questions. Subjective Principal diagnosis: CAD, DCHF Interval history: Mr. Gonzalez is s/p PCI to RCA. Denies chest pain. BLE improved.No SOB. Objective Vital Signs, Last 4 Hours Temp Pulse Resp BP Pulse Ox 11/20/18 07:30 97.6 F 54 18 109/54 96 General: Conversant, No Apparent Distress HEENT: Atraumatic, Normocephaly, Mucus Membranes Moist Neck: No JVD, Normal carotid pulses Cardiac: Reg Rate and Rhythm, Normal S1 and S2, No Murmur Lungs: Normal Breath Sounds, No Wheeze, Rales, Rhonchi Neuro: Alert and responsive, No focal deficits noted Abdomen: Soft, Non-Tender Skin: No rashes noted on visualized skin Musculoskeletal: No Chest Wall Tenderness Extremities: No Clubbing, No Cyanosis, No Edema, Normal Pulses, Other (Right femoral access without hematoma. No redness or edema) Results 11/20/18 00:32 11/20/18 00:32 Lab Results 11/19/18 11/19/18 11/20/18 13:00 13:00 00:32 WBC 3.8 L 6.4 D Hgb 13.6 13.0 Hct 41.2 40.0 Plt Count 265 231 Sodium 136 Potassium 4.6 Chloride 105 Carbon Dioxide 23 BUN 22 Creatinine 0.95 Glucose 126 H Calcium 9.8 11/20/18 00:32 WBC Hgb Hct Plt Count Sodium 136 Potassium 3.9 Chloride 105 Carbon Dioxide 23 BUN 23 Creatinine 1.04 Glucose 285 H Calcium 9.0 - EKG Interpretation EKG results cardiology: personally reviewed Consult Discharge Plan - Plan Instructions: Myocardial Infarction (DC), Chest Pain (DC), Left Heart Catheterization (DC) Additional Instructions: RISK FACTORS: STOP SMOKING: If you smoke, STOP. Smoking or tobacco use significantly increases your risk of heart disease because nicotine causes the arteries to narrow or constrict. It also causes fats to stick to the artery. Your chances of having a heart attack are greatly increased if you continue to smoke. For more information, call the education line for smoking cessation 3-306-CKXGPYT EAT A LOW FAT/CHOLESTEROL/SODIUM DIET: This diet may help reduce your chances of having a heart attack. LIFTING: Avoid lifting anything more than 10 pounds for 5-7 days Prior to straining, laughing, sneezing and/or coughing, apply manual pressure directly over insertion site. ACTIVITY: You may walk or climb stairs as tolerated You can resume sexual activity as tolerated In general, you are encouraged to engage in a minimum of 30 minutes or more of moderate intensity physical activity, such as brisk walking, daily or at least 3-4 times weekly BATHING Do not submerge the site into water (bath tub, hot tub, swimming pool) for 1 week. This can be a source for infection into the blood stream. You may shower after 24 hours SITE CARE: After 24 hours, you may remove the dressing and leave the site open to air. Keep the site clean and dry. Clean gently and pat dry. You can expect bruising and tenderness that gradually resolve within a week or two. Return to work as instructed per your physician Resume driving as instructed per physician Keep all scheduled follow up appointments Resume medications as instructed IMPORTANT: If prescribed a Platelet Aggregation Inhibitor such as, Plavix, Brilinta or Effient: Duration of therapy is minimum one year These medications are often used in combination with Aspirin in prevention of future heart attacks Never discontinue unless consult with your Health Clinician STROKE (CVA) Risk factors for a stroke are: Age, cigarette smoking, diabetes, excessive alcohol consumption, family history, high blood pressure, overweight, physical inactivity, prior stroke, heart attack, diagnosis of carotid artery stenosis or other artery disease. Warning signs: Sudden numbness or weakness of the face, arm or leg; especially on one side of the body, sudden confusion, trouble speaking or understanding, sudden trouble seeing in one or both eyes, sudden trouble walking, dizziness, loss of balance or coordination, sudden severe headache with no cause. Call 911 or go to the Emergency Room. CONGESTIVE HEART FAILURE: If you have been diagnosed with Congestive Heart Failure (CHF) and your symptoms return, make an appointment with your physician Weigh yourself daily. Notify your physician if you have a weight gain of two or more pounds in one day or five or more pounds in one week. If you experience any difficulty breathing, please call 911 BLEEDING: Although the risk of bleeding is minimal, it can happen. If you have any bleeding from the site, apply firm pressure above the puncture site for 10-15 minutes. If the bleeding does not stop, continue manual pressure and call 911 Contact your physician if: You develop a fever greater than 101 degrees Fahrenheit Your site becomes reddened or has any drainage You have an increase in pain or burning at the site or if a large knot forms at the site. If you experience chest pain, shortness of breath, dizziness, or extreme tiredness, stop the activity and rest. Please notify your physicians office if you experience any of these symptoms and they are not relieved by rest please call 911! Referrals: Traci Salazar MD [Partnered Physician] - (Office will call the patient at home with follow up appointment) Brian Nice DO [Primary Care Provider] - 11/23/18 2:30 pm Prescriptions: Aspirin 81 mg PO DAILY #30 tab.chew Ticagrelor [Brilinta] 90 mg PO BID #60 tablet Nitroglycerin 0.4 mg SL Q5MPRN PRN #10 tab.subl PRN Reason: Chest Pain
--- NOTE | 2018-11-20 11:17 | Discharge Summary ---
- NOTES TO OUTPATIENT PROVIDER Notes to Outpatient Provider: Patient was admitted for chest pain, found to have abnormal stress test and underwent LHC, which reported of single vessel disease s/p PCI with stent placement. Orders not resulted at time of discharge: Pending orders 11/18/18 07:39 NM lisa perf SPECT multi [NM] Routine 11/19/18 17:36 ECG 12 lead ECG [ECG] Stat 11/20/18 06:00 ECG 12 lead ECG [ECG] AM 0600 Date of Encounter: 11/20/18 Time of Encounter: 11:14 - Discharge Diagnosis (1) Chest pain Priority: Primary Status: Acute Qualifiers: Qualified Code(s): R07.9 - Chest pain, unspecified (2) Diabetes mellitus Priority: Secondary Status: Chronic Qualifiers: Qualified Code(s): E11.9 - Type 2 diabetes mellitus without complications (3) Hypertension Priority: Secondary Status: Chronic Qualifiers: Qualified Code(s): I10 - Essential (primary) hypertension (4) CHF (congestive heart failure) Priority: Secondary Status: Acute Qualifiers: Qualified Code(s): I50.31 - Acute diastolic (congestive) heart failure (5) DVT prophylaxis Priority: Secondary Status: Acute Hospital course: Mr. Gonzalez is a 83 year old male with PMH of HTN, DM, gout who was admitted for chest pain. He underwent nuclear stress test and was found to have an abnormal stress test. He was further taken in for LHC by cardiology. 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 Pt was started on Aspirin and Brilinta. Pt's 2D echo also reported diastolic dysfunction and as per cardiology's recommendation, pt should be continued on Lasix 20mg qdaily prn edema. Pt is seen and examined earlier this morning this daughter present at bedside. Pt reports complete resolution of chest pain and denies any shortness of breath. He is ambulating well without any discomfort. He is medically stable for discharge to home with outpatient follow up with PCP and cardiology. Pt demonstrates understanding of his hospital course, and agrees with the discharge care and plan; all questions were answered. Discharge discussed with: patient, family, nurse, social work, case management, domestic travel consultant - Time Spent with Patient Total time spent providing and/or coordinating discharge services: 35 minutes Time spent: Greater than 30 minutes - Discharge Medications Prescriptions: New Aspirin 81 mg PO DAILY #30 tab.chew Ticagrelor [Brilinta] 90 mg PO BID #60 tablet Nitroglycerin 0.4 mg SL Q5MPRN PRN #10 tab.subl PRN Reason: Chest Pain Furosemide [Lasix] 20 mg PO DAILY PRN #30 tablet PRN Reason: Edema Continued [place]-3/Dha/Epa/Fish Oil [Fish Oil 1,000 mg Softgel] 1 cap PO BID Rosuvastatin Calcium [Crestor] 5 mg PO HS Metformin HCl 1,000 mg PO BID Lisinopril [Zestril] 40 mg PO HS Allopurinol [Zyloprim] 300 mg PO DAILY Fenofibrate Nanocrystallized [Fenofibrate] 160 mg PO DAILY Loratadine [Claritin] 10 mg PO DAILY PRN PRN Reason: Allergy Symptoms Discontinued Clopidogrel [Plavix] 75 mg PO DAILY Home Medications: Allopurinol [Zyloprim] 300 mg PO DAILY 11/17/18 [History] Fenofibrate Nanocrystallized [Fenofibrate] 160 mg PO DAILY 11/17/18 [History] Lisinopril [Zestril] 40 mg PO HS 11/17/18 [History] Metformin HCl 1,000 mg PO BID 11/17/18 [History] [place]-3/Dha/Epa/Fish Oil [Fish Oil 1,000 mg Softgel] 1 cap PO BID 11/17/18 [History] Rosuvastatin Calcium [Crestor] 5 mg PO HS 11/17/18 [History] Loratadine [Claritin] 10 mg PO DAILY PRN 11/19/18 [History] Aspirin 81 mg PO DAILY #30 tab.chew 11/20/18 [Rx] Furosemide [Lasix] 20 mg PO DAILY PRN #30 tablet 11/20/18 [Rx] Nitroglycerin 0.4 mg SL Q5MPRN PRN #10 tab.subl 11/20/18 [Rx] Ticagrelor [Brilinta] 90 mg PO BID #60 tablet 11/20/18 [Rx] Allergies/Adverse Reactions: Allergy/AdvReac Type Severity Reaction Status Date / Time No Known Drug Allergies Allergy Unknown See Verified 11/19/18 10:43 Comments Date of admission: 11/17/18 21:03 Primary care physician: Brian Nice DO Consults: 11/19/18 09:16 Consult to Cardiology [CONS] Routine Comment: Consulting Provider: Ghada Rodriguez Reason for Consult: abnormal echo, signs of HF. Call Completed: Yes 11/19/18 17:36 Consult to Cardiac Rehabilitation-Phase1 [CONS] Routine Comment: Reason for Consult: post op PCI Call Completed: Yes 11/20/18 07:58 Consult to Physical Therapy [CONS] Routine Comment: Evaluate, develop and implement POC Reason for Consult: evaluation for discharge disposition Does patient have active BEDREST order?: No Is patient medically & hemodynamically stable?: Yes Patient assessed for mobility or mobilized this visit?: Yes Discharging clinician: Karoline Piper Anticipated date of discharge: 11/20/18 - Constitutional Vitals: Temp Pulse Resp BP Pulse Ox 97.6 F 54 18 109/54 96 11/20/18 07:30 11/20/18 07:30 11/20/18 07:30 11/20/18 07:30 11/20/18 07:30 Exam: General: No acute distress, AAO x 3, pleasant elderly male HEENT: EOMI, PERRLA, NC/AT, no scleral icterus Respiratory: Clear to auscultate bilaterally, no wheezing, no rales Cardiovascular: Regular, Rate, Rhythm, No murmurs GI: Soft, Non tender, non distended, normal bowel sounds Ext: trace pitting edema in b/l LE, no tenderness, positive pulses Neuro: AAO x 3, no focal deficits, CN II-XII grossly intact Rest of the clinical exam is noncontributory - Patient Status Disposition: Home, Self-Care Condition: Good Functional capacity at discharge: independent ambulation Overall status at discharge: patient is back to baseline - Discharge Instructions Instructions: Myocardial Infarction (DC), Chest Pain (DC), Left Heart Catheterization (DC) Follow Up With: Traci Salazar MD [Partnered Physician] - (Office will call the patient at home with follow up appointment) Brian Nice DO [Primary Care Provider] - 11/23/18 2:30 pm Additional Instructions: 1. Please follow up with your primary care physician within three to five days after your discharge from the hospital. 2. Please follow up with cardiology within one week after your discharge from the hospital. 3. Your home medications have been changed as follows: -Aspirin 81mg once a day is added -Plavix is discontinued -Brilinta 90mg twice a day is added 4. Please continue all your other home medications as prescribed by your primary care physician. 5. You are given a prescription for Nitroglycerin 0.4mg SL as needed for chest pain. please seek medical help immediately if chest pain occurs and if you have to take this medication. 6. Lasix 20mg once a day is added to your home medications. Take this medication if you are noted to have worsening of swelling in bilateral LE and have weight gain along with shortness of breath. Maintain fluid restriction at home, consuming no more than 2L fluid/day. RISK FACTORS: STOP SMOKING: If you smoke, STOP. Smoking or tobacco use significantly increases your risk of heart disease because nicotine causes the arteries to narrow or constrict. It also causes fats to stick to the artery. Your chances of having a heart attack are greatly increased if you continue to smoke. For more information, call the education line for smoking cessation 4-854-YOZPLEJ EAT A LOW FAT/CHOLESTEROL/SODIUM DIET: This diet may help reduce your chances of having a heart attack. LIFTING: Avoid lifting anything more than 10 pounds for 5-7 days Prior to straining, laughing, sneezing and/or coughing, apply manual pressure directly over insertion site. ACTIVITY: You may walk or climb stairs as tolerated You can resume sexual activity as tolerated In general, you are encouraged to engage in a minimum of 30 minutes or more of moderate intensity physical activity, such as brisk walking, daily or at least 3-4 times weekly BATHING Do not submerge the site into water (bath tub, hot tub, swimming pool) for 1 week. This can be a source for infection into the blood stream. You may shower after 24 hours SITE CARE: After 24 hours, you may remove the dressing and leave the site open to air. Keep the site clean and dry. Clean gently and pat dry. You can expect bruising and tenderness that gradually resolve within a week or two. Return to work as instructed per your physician Resume driving as instructed per physician Keep all scheduled follow up appointments Resume medications as instructed IMPORTANT: If prescribed a Platelet Aggregation Inhibitor such as, Plavix, Brilinta or Effient: Duration of therapy is minimum one year These medications are often used in combination with Aspirin in prevention of future heart attacks Never discontinue unless consult with your Air Director STROKE (CVA) Risk factors for a stroke are: Age, cigarette smoking, diabetes, excessive alcohol consumption, family history, high blood pressure, overweight, physical inactivity, prior stroke, heart attack, diagnosis of carotid artery stenosis or other artery disease. Warning signs: Sudden numbness or weakness of the face, arm or leg; especially on one side of the body, sudden confusion, trouble speaking or understanding, sudden trouble seeing in one or both eyes, sudden trouble walking, dizziness, loss of balance or coordination, sudden severe headache with no cause. Call 911 or go to the Emergency Room. CONGESTIVE HEART FAILURE: If you have been diagnosed with Congestive Heart Failure (CHF) and your sym ptoms return, make an appointment with your physician Weigh yourself daily. Notify your physician if you have a weight gain of two or more pounds in one day or five or more pounds in one week. If you experience any difficulty breathing, please call 911 BLEEDING: Although the risk of bleeding is minimal, it can happen. If you have any bleeding from the site, apply firm pressure above the puncture site for 10-15 minutes. If the bleeding does not stop, continue manual pressure and call 911 Contact your physician if: You develop a fever greater than 101 degrees Fahrenheit Your site becomes reddened or has any drainage You have an increase in pain or burning at the site or if a large knot forms at the site. If you experience chest pain, shortness of breath, dizziness, or extreme tiredness, stop the activity and rest. Please notify your physicians office if you experience any of these symptoms and they are not relieved by rest please call 911! - Diet and Activity Activity: as per the cardiac rehab, increase activity as tolerated Diet: diabetic diet, low fat, low cholesterol, low salt diet
--- NOTE | 2018-11-24 16:28 | Electrocardiograph Report ---
[address] [place] [address] Test Date: 2018-11-20 Pat Name: Elieser Gonzalez Department: 110 Room: 2N14 Gender: M Website Developer: : 1935 Requested By: Traci Salazar Order Number: [id number] Reading MD: Traci Salazar Measurements Intervals [place] Rate: 54 P: 53 W[place]: 269 QRS: 51 QRSD: 96 T: 1 QT: 428 QTc: 413 Interpretive Statements SINUS BRADYCARDIA WITH FIRST DEGREE AV BLOCK POSSIBLE INFERIOR MYOCARDIAL INFARCTION [30 ms Q WAVE IN II/aVF], PROBABLY OLD WITH POSTERIOR EXTENSION [PROMINENT R WAVE IN V1 Electronically Signed On 11-24-2018 16:27:10 EDT by Traci Salazar
== END 2018-11-20 12:53 | disposition home or self-care (01) ==
LOC: EMEROOARM 16:43 → 3BNU 16:43 → 2NNU 11-19 17:18
PROVIDERS: ADMIT Internal Medicine Nephrology; ATTEND Internal Medicine Nephrology

== ENCOUNTER 2021-03-31 14:50 | Observation (INO) ==
[2021-03-31 15:39] LABS: Basophils % 0.4 %; Eosinophils # 0.1 K/mcL (0.0-0.6); Eosinophils % 0.7 %; Hematocrit 27.2 % (37.5-50.1); Immature Granulocytes % 0.3 % (0-4); Lymphocytes # 1.3 K/mcL (0.6-4.6); Lymphocytes % 18.5 %; Mean Corpuscular HGB Conc 33.1 g/dL (31.6-35.5); Mean Corpuscular Hemoglobin 31.8 pg (28.0-33.3); Mean Corpuscular Volume 96.1 fL (83.0-100.0); Mean Platelet Volume 11.2 fL (9.4-12.4); Monocytes # 0.6 K/mcL (0.0-1.3); Monocytes % 8.8 %; Neutrophils # 5.1 K/mcL (1.6-8.9); Platelet Count 234 K/mcL (140-400); Red Blood Count 2.83 M/mcL (4.19-5.50); Red Cell Distribution Width 13.4 % (11.5-14.5); Segmented Neutrophils % 71.3 %; White Blood Count 7.2 K/mcL (4.3-11.1)
[2021-03-31 15:58] LABS: Alanine Aminotransferase 11 Units/L (7-52); Albumin 3.9 g/dL (3.5-5.7); Albumin/Globulin Ratio 1.7 (1.1-2.2); Alkaline Phosphatase 35 Units/L (34-104); Aspartate Amino Transferase 19 Units/L (13-39); BUN/Creatinine Ratio 62 (6-26); Bilirubin,Indirect 0.3 mg/dL (0.0-1.0); Bilirubin,Total 0.3 mg/dL (0.3-1.0); Blood Urea Nitrogen 70 mg/dL (8-23); Calcium 9.3 mg/dL (8.6-10.3); Carbon Dioxide 22 mEq/L (23-29); Chloride 103 mEq/L (98-107); Globulin 2.3 g/dL (2.4-3.5); Glucose 167 mg/dL (70-105); Osmolality,Calculated 302 (280-300); Potassium 4.4 mEq/L (3.5-5.1); Sodium 134 mEq/L (136-145); Total Protein 6.2 g/dL (6.4-8.9); eGFR For African Americans > 60 (> 60); eGFR For Non-African Americans > 60 (> 60)
[2021-03-31 16:44] LABS: Activated Partial Thrombo Time 25.4 Seconds (26.0-36.0)
[2021-03-31 16:46] LABS: INR 1.1; Prothrombin Time 12.7 Seconds (9.4-12.1)
[2021-03-31] MEDS ORDERED: Tdap (Boostrix) Vaccine 0.5 ML SYRINGE IM ONE (16:52)
[2021-03-31] MEDS ORDERED: Pantoprazole 40 MG VIAL IVP ONE (16:52)
[2021-03-31 17:39] LABS: Troponin I < 0.03 ng/mL (< 0.04)
[2021-03-31 17:40] LABS: Bilirubin,Urine Negative (Negative); Blood,Urine Negative (Negative); Clarity,Urine Clear (Clear); Color,Urine Light-Yellow (Yellow); Glucose,Urine (UA) Normal (Normal); Ketones,Urine Negative (Negative); Leukocyte Esterase,Urine Negative (Negative); Nitrite,Urine Negative (Negative); Protein,Urine Negative (Neg-Trace); Urobilinogen,Urine Normal (Normal)
[2021-03-31] MEDS ORDERED: *HR* Promethazine 25 MG/ML VIAL IM PRN (20:16)
[2021-03-31] MEDS ORDERED: Acetaminophen 325 MG TABLET PO PRN (20:16)
[2021-03-31] MEDS ORDERED: Ondansetron 4 MG/2 ML VIAL IVP PRN (20:16)
[2021-03-31] MEDS ORDERED: Naloxone 0.4 MG/ML INJ IVP PRN (20:16)
[2021-03-31] MEDS ORDERED: Perflutren Lipid Microsphere 1.3 ML in 0.9 % Sodium Chloride 8.7 ML IVP PRN (20:25)
[2021-03-31] MEDS ORDERED: Melatonin 3 MG TABLET PO PRN (21:00)
[2021-03-31] MEDS ORDERED: lisinopriL 20 MG TABLET PO SCH (23:00)
[2021-03-31] MEDS: Sennosides/Docusate Sodium TABLET PO SCH (23:47)
[2021-03-31] MEDS: amLODIPine 5 MG TABLET PO SCH (23:48)
[2021-04-01 05:39] LABS: Basophils % 1.1 %; Eosinophils # 0.1 K/mcL (0.0-0.6); Eosinophils % 1.7 %; Hemoglobin 7.4 g/dL (12.9-16.9); Immature Granulocytes % 0.3 % (0-4); Lymphocytes # 1.1 K/mcL (0.6-4.6); Mean Corpuscular HGB Conc 32.2 g/dL (31.6-35.5); Mean Corpuscular Volume 99.6 fL (83.0-100.0); Monocytes # 0.5 K/mcL (0.0-1.3); Monocytes % 13.1 %; Neutrophils # 1.8 K/mcL (1.6-8.9); Platelet Count 172 K/mcL (140-400); Red Blood Count 2.31 M/mcL (4.19-5.50); Red Cell Distribution Width 13.7 % (11.5-14.5); Segmented Neutrophils % 51.8 %; White Blood Count 3.5 K/mcL (4.3-11.1)
[2021-04-01 05:46] LABS: INR 1.1; Prothrombin Time 12.1 Seconds (9.4-12.1)
[2021-04-01] MEDS: Pantoprazole 40 MG VIAL IVP SCH ×2 (05:52→17:47)
[2021-04-01 05:58] LABS: BUN/Creatinine Ratio 57 (6-26); Blood Urea Nitrogen 59 mg/dL (8-23); Calcium 8.4 mg/dL (8.6-10.3); Carbon Dioxide 22 mEq/L (23-29); Chloride 108 mEq/L (98-107); Glucose 142 mg/dL (70-105); Osmolality,Calculated 301 (280-300); Potassium 4.4 mEq/L (3.5-5.1); Sodium 136 mEq/L (136-145); eGFR For African Americans > 60 (> 60); eGFR For Non-African Americans > 60 (> 60)
[2021-04-01] MEDS: amLODIPine 5 MG TABLET PO SCH (08:14)
[2021-04-01] MEDS: Sennosides/Docusate Sodium TABLET PO SCH (08:14)
[2021-04-01] MEDS ORDERED: *HR* Midazolam HCl 5 MG/5 ML VIAL IVP ONE ×2 (09:31→09:49)
[2021-04-01] MEDS ORDERED: *HR* FentaNYL (PF) 100 MCG/2 ML VIAL ONE (09:31)
[2021-04-01] MEDS ORDERED: *HR* FentaNYL (PF) 100 MCG/2 ML VIAL IVP ONE (09:49)
[2021-04-01] MEDS ORDERED: Tetracaine/Benzocaine/Butamben 1 SPRAY AEROSOL MM ONE (09:49)
[2021-04-01] MEDS ORDERED: Simethicone 40 MG/0.6 ML MLS IR ONE (09:49)
[2021-04-01] MEDS ORDERED: 0.9 % Sodium Chloride 1,000 ML IVC SCH (10:00)
[2021-04-01 12:07] LABS: Hematocrit 23.4 % (37.5-50.1); Hemoglobin 7.7 g/dL (12.9-16.9)
[2021-04-02] MEDS: Pantoprazole 40 MG VIAL IVP SCH (04:45)
[2021-04-02] MEDS ORDERED: Nitroglycerin 0.4 MG TAB.SUBL SL PRN (08:05)
[2021-04-02] MEDS ORDERED: Furosemide 20 MG TABLET PO PRN (08:05)
[2021-04-02] MEDS: Sennosides/Docusate Sodium TABLET PO SCH (08:13)
[2021-04-02] MEDS ORDERED: amLODIPine 5 MG TABLET PO SCH (09:00)
[2021-04-02] MEDS ORDERED: allopurinoL 300 MG TABLET PO SCH (09:00)
[2021-04-02 09:34] LABS: Hematocrit 25.4 % (37.5-50.1); Hemoglobin 8.2 g/dL (12.9-16.9)
[2021-04-02 11:43] VITALS: BP 159/65; PULSE 86; TEMP 98; O2SAT 96
== END 2021-04-02 16:44 | disposition home or self-care (01) ==
LOC: EMEROOARM 14:50 → 3ANU 14:50 → SUATTDRO 19:21 → 3ANU 19:38
PROVIDERS: ADMIT Family Medicine; ATTEND Student in an Organized Health Care Education/Training Program
PROC: ENDOEBX (2021-04-01 09:30)